=== PATIENT | female | born 1960 | race Caucasian/White ===

== ENCOUNTER → 2017-02-02 | Outpatient (CLI) | payer OTHER | LOC: FIMAGING 08:30 | DX: Z12.31 Encounter for screening mammogram for malignant neoplasm of breast (principal); Z80.3 Family history of malignant neoplasm of breast | CPT/HCPCS: G0202 ==

== ENCOUNTER 2018-10-05 06:19 | Emergency (ER) | payer OTHER ==
--- NOTE | 2018-10-05 06:44 | EDPHY ---
H & P Time Seen by Provider: 10/05/18 06:44 HPI/ROS: CHIEF COMPLAINT: Right arm pain HISTORY OF PRESENT ILLNESS: Patient was running downhill with her dog on grass and slipped landing on her arm which is behind her. Presents with severe right arm pain which is started just after the fall and is worse with any movement. Does not radiate, and no weakness or numbness in the right hand associated. Hit her head but did not lose consciousness, no headache or neck or back pain. REVIEW OF SYSTEMS: Eye: no change in vision ENT: no sore throat Cardiac: no chest pain or syncope Pulmonary: no cough or SOB Abdomen: no vomiting, diarrhea, abdominal pain Musculoskeletal: HPI Skin: No laceration. Neuro: no headache Constitutional: no fever : no urinary symptoms A comprehensive 10 point review of systems is otherwise negative aside from elements mentioned in the history of present illness. PAST MEDICAL HISTORY: Right ACL at [facility], left hip fracture Social history: Nonsmoker, right handed, swimmer General Appearance: Alert and conversant, cooperative. Eyes: No scleral icterus. ENT, Mouth: Normal mucous membranes. Respiratory: Normal respiratory effort, breath sounds equal, lungs are clear to auscultation. Cardiovascular: Regular rate and rhythm. Gastrointestinal: Abdomen is soft and non tender. Neurological: Alert, face symmetric, normal motor and sensory in extremities. Specifically the patient has sensation over the dorsum of the right hand on the thenar eminence, she can make a hitchhiking motion with her right thumb. Skin: Warm and dry, no rashes. No laceration on the right arm. Musculoskeletal: No midline spinal tenderness. The she does not have right clavicular tenderness or elbow forearm or hand or wrist tenderness. She is tender and swollen on the mid right humeral area. Psychiatric: Not agitated. Emergency Department course/MDM: Had coffee Zoran crackers and a radha's kiss at 4:30 a.m. X-ray reviewed with the patient shows midshaft humerus fracture. Discussed with orthopedic surgery on-call. 1921: Zainab with Dr. Johnson. 745: Discussed with Dr. johnson, recommends coaptation splint and sling, nonsurgical management this time, office follow-up. Discussed with patient states understanding and agreement with the plan. Additional 100 mcg IV fentanyl given. 825: Procedure: Splint placement. A right arm coaptation splint was applied. After application of the splint I returned and re-examined the patient. Pressure was applied personally by myself to attempt to create some lateral pressure and slight valgus. The splint was adequately immobilizing the joint and distal to the splint the patient's circulation and sensation was intact. Smoking Status: Never smoked Constitutional: Initial Vital Signs Temperature (C) 36.4 C 10/05/18 06:27 Heart Rate 72 10/05/18 06:27 Respiratory Rate 16 10/05/18 06:27 Blood Pressure 119/82 H 10/05/18 06:27 O2 Sat (%) 97 10/05/18 06:27 O2 Delivery Mode Room Air Allergies/Adverse Reactions: No Known Allergies Allergy (Unverified 10/05/18 06:32) Home Medications: Medication Instructions Recorded oxyCODONE/APAP 5/325 [Percocet] 1 tab PO Q4-6PRN PRN #11 tab 10/05/18 Medical Decision Making - Diagnostics Imaging Results: Imaging Impressions Humerus X-Ray 10/05/18 06:31 Impression: Mid humeral shaft fracture. Imaging: I viewed and interpreted images myself Differential Diagnosis: Differential considered including but not limited to shoulder dislocation, humerus fracture, compartment syndrome, nerve or artery injury. - Data Points Medications Given: Discontinued Medications Fentanyl (Sublimaze) 100 mcg IVP EDNOW ONE Stop: 10/05/18 07:51 Last Admin: 10/05/18 07:57 Dose: 100 mcg Hydromorphone HCl (Dilaudid) 0.5 mg IVP EDNOW ONE Stop: 10/05/18 06:46 Last Admin: 10/05/18 06:49 Dose: 0.5 mg Departure - Departure Disposition: Home, Routine, Self-Care Clinical Impression: Closed right humeral fracture Qualifiers: Encounter type: initial encounter Humerus Location: shaft Fracture morphology: transverse Fracture alignment: displaced Qualified Code(s): S42.321A - Displaced transverse fracture of shaft of humerus, right arm, initial encounter for closed fracture Condition: Fair Instructions: Arm Fracture in Adults (ED) Referrals: Lele Johnson MD [Medical Doctor] - 5-7 days, call for appt. (Or this week if still having lot of pain.) Prescriptions: oxyCODONE/APAP 5/325 [Percocet] 1 tab PO Q4-6PRN PRN #11 tab PRN Reason: Pain
[2018-10-05] MEDS ORDERED: HYDROmorphONE/DILAUDID 2 MG/ML INJ IVP ONE (06:45)
[2018-10-05] MEDS ORDERED: HYDROmorphONE/DILAUDID 1 MG/ML INJ ONE (06:47)
[2018-10-05] MEDS ORDERED: fentaNYL 100 MCG/2 ML INJ IVP ONE (07:50)
[2018-10-05 09:03] VITALS: BP 122/91
== END 2018-10-05 09:06 | disposition home or self-care (01) ==
LOC: MERGE 06:19 → EDSEX 06:19
PROC: 2W38X1Z Immobilization of Right Upper Extremity using Splint (ICD-10-PCS; principal; 2018-10-05)
DX: S42.321A Displaced transverse fracture of shaft of humerus, right arm, initial encounter for closed fracture (principal); W17.81XA Fall down embankment (hill), initial encounter; Y93.02 Activity, running; Y93.K9 Activity, other involving animal care; Y99.9 Unspecified external cause status
CPT/HCPCS: 96374; A4565; J1170; J3010